=== PATIENT | male | born 1990 | race Caucasian/White ===

== ENCOUNTER 2025-02-13 06:27 | Emergency (ER) | payer SELFPAY ==
[2025-02-13 07:13] LABS: MEAN PLATELET VOLUME 9.9 fL (9.4-12.4); NRBC ABSOLUTE 0.00 K/uL (0.00-0.02); NRBC PERCENT 0.0 /100WBC (0.0-0.2); PLATELET COUNT,PLT 173 K/uL (150-400); RED BLOOD CELL COUNT 5.02 M/uL (4.52-5.90); WHITE BLOOD CELL COUNT,WBC 13.28 K/uL (3.9-11.3)
[2025-02-13] MEDS: Sodium Chloride 0.9% 10 ML Syringe FLUSH PRN (07:26)
[2025-02-13] MEDS: Sodium Chloride 0.9% 2.5 ML Syringe FLUSH PRN (07:26)
[2025-02-13 07:28] LABS: INR 1.12 (0.86-1.11); PTT,PARTIAL THROMBOPLSTIN TIME 29.6 SEC (23.9-30.7)
[2025-02-13 07:32] LABS: D-DIMER QUANTITATIVE < 0.19 mg/L FEU (0.00-0.50)
[2025-02-13 07:39] LABS: A/G RATIO 1.0 (0.9-1.6); ALANINE AMINOTRANSFERASE,ALT 28.0 IU/L (14-63); ASPARTATE AMNIOTRANSFERASE,AST 23.0 IU/L (15-37); BILIRUBIN TOTAL 0.8 mg/dL (0.2-1.0); BLOOD UREA NITROGEN,BUN 10.0 mg/dL (7.0-18.0); CARBON DIOXIDE,CO2 26.9 mmol/L (21.0-32.0); CHLORIDE,CL 98.0 mmol/L (98-107); CREATINE KINASE,CK 85.0 U/L (26-308); CREATININE 0.9 mg/dL (0.8-1.3); EST CRCL DRUG DOSING (CG) 108.98 mL/min; GLUCOSE RANDOM 119.0 mg/dL (74-106); POTASSIUM,K 3.3 mmol/L (3.5-5.1); PROTEIN TOTAL,TP 8.1 g/dL (6.4-8.2); SODIUM,NA 134.0 mmol/L (136-148)
[2025-02-13 07:42] LABS: ESTIMATED GFR 116.0 mL/min (>60)
[2025-02-13 07:43] LABS: LACTIC ACID 0.6 mmol/L (0.4-2.0)
[2025-02-13] MEDS: cefTRIAXone 2 GM in Water For Injection, Sterile 20 ML IVPUSH ONE (07:46)
[2025-02-13 07:49] LABS: BAND ABSOLUTE MAN 0.53; BAND PERCENT MAN 4 %; LYMPHOCYTES ABSOLUTE MAN 1.06 K/uL (1.00-4.80); LYMPHOCYTES PERCENT MAN 8 % (24-44); SEG NEUTROPHILS ABSOLUTE MAN 9.56 K/uL (1.80-7.70); SEG NEUTROPHILS PERCENT MAN 72 % (41-71)
[2025-02-13 07:50] LABS: MONOCYTES ABSOLUTE MAN 2.12 K/uL (0.00-0.80); MONOCYTES PERCENT MAN 16 % (0-8)
[2025-02-13] MEDS: Ondansetron 4 MG/2 ML SDV IVPUSH ONE (07:51)
[2025-02-13] MEDS: Potassium Chloride 20 MEQ Tab.ER PO ONE (07:51)
[2025-02-13] MEDS: Magnesium Sulfate 2 GM/50 mL 2 GM in Premix Bag 1 BAG IV ONE (07:51)
[2025-02-13] MEDS: Iopamidol 755 MG/ML 500 ML Multipack Bottle IVPUSH STA (08:45)
[2025-02-13 09:08] LABS: APPEARANCE,URINE CLEAR; GLUCOSE,URINE NEGATIVE (NEGATIVE); OCCULT BLOOD,URINE NEGATIVE (NEGATIVE)
[2025-02-13 10:31] LABS: POTASSIUM,K 3.6 mmol/L (3.5-5.1)
== END 2025-02-13 13:15 | disposition home or self-care (01) ==
LOC: MW.ED 06:27
DX: B34.9 Viral infection, unspecified (principal); J02.9 Acute pharyngitis, unspecified; E86.0 Dehydration
CPT/HCPCS: 70360; 71045; 71260; 74177; 80053; 81003; 82550; 83605; 83690; 83735; 84132; 84484; 85025; 85379; 85610; 85652; 85730; 86140; 86850; 86900; 86901; 87040; 87154; 87428; 87651; 93005; 96361; 96365; 96375; 99285; A4216; A9270; J0696; J2405; J3475; J7030; Q9967; 87077; 87186; 93010; 99284